=== PATIENT | male | born 1980 | race Hispanic/Latino ===

== ENCOUNTER 2017-06-26 23:40 | Emergency (ER) | payer OTHER ==
[~2017-06-26] VITALS: Ht 165.1 cm; Wt 75.4 kg
[2017-06-27 00:11] LABS: HEMATOCRIT 44.4 % (38.0-50.0); HEMOGLOBIN 15.2 G/DL (12.5-16.6); MCHC 34.2 G/DL (30.0-36.0); MCV 81.9 FL (86-99); PLATELET COUNT 198 K/uL (156-360); RBC DIS.WIDTH-CV 12.6 % (11.8-14.6); RBC DIS.WIDTH-SD 37.5 % (39-53); RED BLOOD COUNT 5.42 M/uL (4.00-5.50); WHITE BLOOD COUNT 8.8 K/uL (4.1-10.2)
[2017-06-27 00:22] LABS: APPEARANCE CLEAR ((CLEAR)); BILIRUBIN NEGATIVE; BLOOD NEGATIVE; COLOR STRAW ((YELLOW)); GLUCOSE (STRIP) NEGATIVE; KETONES NEGATIVE; LEUKOCYTES NEGATIVE; NITRITE NEGATIVE; PROTEIN (STRIP) NEGATIVE; SPECIFIC GRAVITY 1.005 (1.000-1.030); UCUL ADDED? NO; UROBILINOGEN 0.2 MG/DL (0.2-1.0)
[2017-06-27 00:31] LABS: ALBUMIN 4.7 g/dL (3.2-4.8); CHLORIDE 104 mEq/L (99-109); POTASSIUM 4.1 mEq/L (3.7-5.4); SODIUM 142 mEq/L (136-147)
[2017-06-27 00:33] LABS: GLUCOSE 104 mg/dL (70-99); TOTAL PROTEIN 7.6 g/dL (6.4-8.3)
[2017-06-27 00:35] LABS: TOTAL BILIRUBIN 1.1 mg/dL (0.0-1.0)
[2017-06-27 00:37] LABS: ALKALINE PHOSPHATASE 91 IU/L (3-129); CREATININE 0.8 mg/dL (0.6-1.3)
[2017-06-27 00:38] LABS: UREA NITROGEN (BUN) 12 mg/dL (9-23)
[2017-06-27 00:39] LABS: AST (GOT) 25 IU/L (2-34)
[2017-06-27 00:40] LABS: ALT (GPT) 42 IU/L (3-49)
[2017-06-27 00:42] LABS: GFR ESTIMATE (CALCULATED) > 59 mL/min/ (58.99-99999)
[2017-06-27] MEDS ORDERED: ZANTAC150 MG PO (03:48)
[2017-06-27 05:06] VITALS: BP 117/77
== END 2017-06-27 05:13 | disposition home or self-care (01) ==
LOC: EME 23:40
DX: R10.84 Generalized abdominal pain (principal); K29.00 Acute gastritis without bleeding; Z88.0 Allergy status to penicillin
CPT/HCPCS: 74177; 80053; 81003; 85027; 99281; 99285; J2405; J7030